=== PATIENT | female | born 2000 | race African-American/Black ===

== ENCOUNTER 2018-10-09 14:53 | Emergency (ER) | payer MEDICAID ==
[~2018-10-09] VITALS: Ht 170.2 cm; Wt 54.5 kg
[2018-10-09 14:58] VITALS: Ht 170.2 cm; Wt 54.5 kg
[2018-10-09] MEDS ORDERED: NAPROSYN500 MG PO (16:55)
[2018-10-09] MEDS ORDERED: HYDROCODON-ACE1 EAC7 PO (16:55)
[2018-10-09 17:35] VITALS: BP 112/69
== END 2018-10-09 17:11 | disposition home or self-care (01) ==
LOC: D.ER 14:53
DX: S93.401A Sprain of unspecified ligament of right ankle, initial encounter (principal); X50.1XXA Overexertion from prolonged static or awkward postures, initial encounter; Y93.89 Activity, other specified; Y92.89 Other specified places as the place of occurrence of the external cause